=== PATIENT | male | born 1955 | race Caucasian/White ===

== ENCOUNTER 2020-09-27 08:02 | Outpatient (CLI) | payer OTHER, SELFPAY ==
--- NOTE | ~2020-09-27 | CT_ITS ---
EXAMINATION: CT lung screening DATE: 09/27/2020 08:29 INDICATION: History of tobacco dependence TECHNIQUE: Computed tomography (CT) of the chest was performed without intravenous contrast. The dose -length product was 136.88 mGy-cm. Automated exposure control and iterative reconstruction technique were employed. COMPARISON: None FINDINGS: There is emphysema. No endobronchial lesions. No significant pleural or pericardial effusio n. No thoracic lymphadenopathy. There is atherosclerosis of the aorta and coronary arteries. No suspi cious pulmonary nodules or masses. No focal airspace consolidation. No pneumothorax. Heart size is no rmal. There is a 2.2 cm liver cyst. IMPRESSION: 1. Lung-RADS category 1: Negative. Continue annual screening with noncontrast low-dose chest CT in 12 months. Reviewed, dictated and finalized at location B. LINE DISPATCHER IMPRESSION: 1. Lung-RADS category 1: Negative. Continue annual screening with noncontrast l ow-dose chest CT in 12 months.
--- NOTE | ~2020-09-27 | US_ITS ---
EXAMINATION: US aorta [facility] DATE: 09/27/2020 08:48 MOTORIZED SQUAD CAPTAIN INDICATION: Abdominal aortic aneurysm screening TECHNIQUE: Grayscale, color Doppler, and pulsed Doppler images of the aorta and common iliac arteries were obtained. COMPARISON: None. FINDINGS: The proximal aorta measures 2.9 cm greatest sagittal dimension. The mid aorta measures 2.2 cm greates t sagittal dimension. The distal aorta measures 3.2 cm greatest sagittal dimension. The right common internal iliac artery measures 1.4 cm. The left common iliac artery measures 1.2 cm. IMPRESSION: 1. Infrarenal abdominal aortic aneurysm measuring 3.2 cm greatest sagittal dimension. Reviewed, dictated and finalized at location B. RIZED SQUAD CAPTAIN IMPRESSION: 1. Infrarenal abdominal aortic aneurysm measuring 3.2 cm greatest sagittal dime nsion.
== END 2020-09-27 08:03 | disposition home or self-care (01) ==
LOC: CHSIMG 08:05
PROVIDERS: PCP Internal Medicine; Visit Provider Internal Medicine
DX: Z12.2 Encounter for screening for malignant neoplasm of respiratory organs (principal); Z87.891 Personal history of nicotine dependence; Z13.89 Encounter for screening for other disorder
CPT/HCPCS: 76706; G0297

== ENCOUNTER 2020-10-02 08:51 | Outpatient (CLI) | payer OTHER, SELFPAY ==
--- NOTE | 2020-10-02 09:00 | EST_ITS ---
Corrected Report: Changed Ordering Physician from Rick, Dave Hillman MD to Jazmin Cabrera MD 10/02/20 -BJO Patient Info Name: Suhas Fox Age: 65 years : 1955 Gender: Male Ht: 71 in Wt: 190 lbs BSA: 2.09 m2 HR: 79 bpm BP: 119 / 53 mmHg Heart Rhythm: Sinus Rhythm Technical Quality: Excellent Exam Date: 10/02/2020 9:06 AM Exam Location: [facility] Patient Status: Outpatient Admit Date: 10/02/2020 Staff Ordering Physician: Jazmin Cabrera MD Attending Provider: Jazmin Cabrera MD Exercise Technologist: Maggie Mariscal CRT Exercise Physician: Marla Banks CEP Exam Type: CA stress test treadmill Study Info Indications CAD - An exercise stress test was performed. History/Risk Factors Dyslipidemia: Yes History/Risk Factors Hypercholesterolemia. Summary 1. 1. Negative Charbel exercise stress test for ischemic ST changes by ECG criteria. 2. 2. Good functional capacity, achieving 9 METs of workload. 3. 3. Appropriate HR response to exercise. 4. 4. Appropriate HR recovery at 1 minute post exercise. 5. 5. No imaging with stress testing. Protocol: Charbel Stress ECG Details Stage: REST Duration (min): 2 min : 7 sec Speed (mph): 0.0 Grade (%): 0 HR (bpm): 78 SBP (mmHg): 119 DBP (mmHg): 53 METS: --- Stage: REST Duration (min): 2 min : 31 sec Speed (mph): 0.0 Grade (%): 0 HR (bpm): 77 SBP (mmHg): 119 DBP (mmHg): 53 METS: --- Stage: STAGE 1 Duration (min): 1 min : 0 sec Speed (mph): 1.7 Grade (%): 10 HR (bpm): 105 SBP (mmHg): 119 DBP (mmHg): 53 METS: --- Stage: STAGE 1 Duration (min): 2 min : 0 sec Speed (mph): 1.7 Grade (%): 10 HR (bpm): 111 SBP (mmHg): 119 DBP (mmHg): 53 METS: --- Stage: STAGE 1 Duration (min): 3 min : 0 sec Speed (mph): 1.7 Grade (%): 10 HR (bpm): 114 SBP (mmHg): 151 DBP (mmHg): 47 METS: --- Stage: STAGE 2 Duration (min): 1 min : 0 sec Speed (mph): 2.5 Grade (%): 12 HR (bpm): 130 SBP (mmHg): 151 DBP (mmHg): 47 METS: --- Stage: STAGE 2 Duration (min): 2 min : 0 sec Speed (mph): 2.5 Grade (%): 12 HR (bpm): 141 SBP (mmHg): 151 DBP (mmHg): 47 METS: --- Stage: STAGE 2 Duration (min): 3 min : 0 sec Speed (mph): 2.5 Grade (%): 12 HR (bpm): 145 SBP (mmHg): 151 DBP (mmHg): 47 METS: --- Stage: STAGE 3 Duration (min): 1 min : 0 sec Speed (mph): 3.4 Grade (%): 14 HR (bpm): 155 SBP (mmHg): 158 DBP (mmHg): 90 METS: --- Stage: STAGE 3 Duration (min): 1 min : 42 sec Speed (mph): 3.4 Grade (%): 14 HR (bpm): 163 SBP (mmHg): 158 DBP (mmHg): 90 METS: --- Stage: RECOVERY Duration (min): 0 min : 17 sec Speed (mph): 1.5 Grade (%): 0 HR (bpm): 161 SBP (mmHg): 158 DBP (mmHg): 90 METS: --- Stage: RECOVERY
== END 2020-10-02 08:52 | disposition home or self-care (01) ==
LOC: CHSCARD 08:52
PROVIDERS: PCP Internal Medicine; Visit Provider Internal Medicine
DX: I25.10 Atherosclerotic heart disease of native coronary artery without angina pectoris (principal)
CPT/HCPCS: 93017

== ENCOUNTER 2022-08-01 07:28 | Outpatient (CLI) | payer MEDICARE, OTHER, SELFPAY ==
--- NOTE | ~2022-08-01 | CT_ITS ---
EXAMINATION:CT lung screening DATE: 08/01/2022 07:49 INDICATION: Personal history of nicotine dependence. Smoker who quit 3 years ago with 44 pack year hi story. TECHNIQUE: Computed tomography (CT) of the chest was performed without intravenous contrast. Automate d exposure control and iterative reconstruction technique were employed. The dose-length product (DLP ) was 155.77 mGy-cm. COMPARISON: Chest CT 09/27/2020 FINDINGS: There is moderate emphysema. There is stable mild scarring at the lung apices. No pleural e ffusion. The heart size is normal. There are coronary artery calcifications. No pericardial effusion. There is mild bilateral gynecomastia. There is a 2.3 cm mass in right adrenal gland inhalation witho ut change, likely an adenoma. There is mild thoracic spondylosis. IMPRESSION: 1. Lung-RADS category 2: Benign appearance or behavior. Continue annual screening with noncontrast lo w-dose chest CT in 12 months. Reviewed, dictated and finalized at location A. IMPRESSION: 1. Lung-RADS category 2: Benign appearance or behavior. Continue annual screeni ng with noncontrast low-dose chest CT in 12 months.
--- NOTE | ~2022-08-01 | US_ITS ---
EXAMINATION: US aorta DATE: 08/01/2022 07:59 INDICATION: Abdominal aortic aneurysm TECHNIQUE: Grayscale, color Doppler, and pulsed Doppler images of the aorta and common iliac arteries were obtained. COMPARISON: None. FINDINGS: The proximal aorta measures 2.8 cm. The mid aorta measures 2.2 cm. Again seen is a likely from aneury sm of the infrarenal abdominal aorta which measures up to 3.9 cm in maximal diameter. The right commo n iliac artery measures 1.2 cm. The left common iliac artery measures 1.1 cm caliber. Normal triphasi c waveforms in the abdominal aorta and the left and right iliac arteries. The visualized proximal inf erior vena cava is normal. IMPRESSION: 1. Interval increase in diameter of a now 3.9 cm infrarenal abdominal aortic aneurysm. Reviewed, dictated and finalized at location A. IMPRESSION: 1. Interval increase in diameter of a now 3.9 cm infrarenal abdominal aortic an eurysm.
== END 2022-08-01 07:29 | disposition home or self-care (01) ==
PROVIDERS: PCP Internal Medicine; Visit Provider Internal Medicine
DX: Z12.2 Encounter for screening for malignant neoplasm of respiratory organs (principal); Z87.891 Personal history of nicotine dependence; I71.40 Abdominal aortic aneurysm, without rupture, unspecified
CPT/HCPCS: 71271; 76775

== ENCOUNTER 2023-02-03 07:48 | Outpatient (CLI) | payer MEDICARE, OTHER, SELFPAY ==
--- NOTE | ~2023-02-03 | US_ITS ---
EXAMINATION: US aorta DATE: 02/03/2023 08:52 CDT INDICATION: Abdominal aortic aneurysm TECHNIQUE: Grayscale, color Doppler, and pulsed Doppler images of the aorta and common iliac arteries were obtained. COMPARISON: Ultrasound dated 08/01/2022 FINDINGS: The proximal aorta measures 2 cm sagittal dimension. The mid aorta measures 2.8 cm sagittal dimension . The distal aorta measures 3.4 cm sagittal dimension. The right common internal iliac artery measure s 1.3 cm. The left common iliac artery measures 1.2 cm. IMPRESSION: 1. Juxtarenal abdominal abdominal aortic aneurysm measuring 3.4 cm. Reviewed, dictated and finalized at location B.
== END 2023-02-03 07:49 | disposition home or self-care (01) ==
LOC: CHSIMG 07:50
PROVIDERS: PCP Internal Medicine; Visit Provider Internal Medicine
DX: I71.40 Abdominal aortic aneurysm, without rupture, unspecified (principal)
CPT/HCPCS: 76775

== ENCOUNTER 2023-08-15 07:25 | Outpatient (CLI) | payer MEDICARE, OTHER, SELFPAY ==
--- NOTE | ~2023-08-15 | CT_ITS ---
CT Scan of the Chest without Contrast: Clinical Indication: Lung cancer screening, personal history of nicotine dependence Technique: Contiguous sections were acquired throughout the chest without intravenous contrast. Dose reduction technique was used on this scan by utilizing automated exposure control and iterative recon struction technique. The dose-length product (DLP) was 141.53 mGy-cm. COMPARISON: 08/01/2022, 09/27/2020 Findings: There is no evidence of any significant mediastinal, hilar or axillary lymphadenopathy. Coronary obey ry calcifications are present. There is no evidence of pleural or pericardial effusion. Mild emphysema at the upper lobes noted. No pulmonary nodules or infiltrates are noted. Images through the upper abdomen reveal stable right adrenal adenoma. Impression: Lung RADS 1: Negative. 12 month follow-up screening CT advised. Reviewed, dictated and finalized at [facility]. Impression: Lung RADS 1: Negative. 12 month follow-up screening CT advised.
--- NOTE | ~2023-08-15 | US_ITS ---
EXAMINATION: US aorta DATE: 08/15/2023 07:50 INDICATION: Follow-up abdominal aortic aneurysm TECHNIQUE: Grayscale, color Doppler, and pulsed Doppler images of the aorta and common iliac arteries were obtained. COMPARISON: 02/03/2023 FINDINGS: The proximal aorta measures 2.2 cm. The mid aorta measures 2.8 cm. The distal aorta measures 2.2 cm. The right common iliac artery measures 1.3 cm. The left common iliac artery measures 1.1 cm. IMPRESSION: 1. Increasing diameter of a fusiform infrarenal abdominal aortic aneurysm now measuring up to 4.4 cm. Reviewed, dictated and finalized at location A. IMPRESSION: 1. Increasing diameter of a fusiform infrarenal abdominal aortic aneurysm now m easuring up to 4.4 cm.
== END 2023-08-15 07:26 | disposition home or self-care (01) ==
LOC: CHSIMG 07:27
PROVIDERS: PCP Internal Medicine; Visit Provider Internal Medicine
DX: Z12.2 Encounter for screening for malignant neoplasm of respiratory organs (principal); I71.43 Infrarenal abdominal aortic aneurysm, without rupture; Z87.891 Personal history of nicotine dependence
CPT/HCPCS: 71271; 76775

== ENCOUNTER 2024-06-09 08:43 | Outpatient (CLI) | payer MEDICARE, OTHER, SELFPAY ==
--- NOTE | ~2024-06-09 | US_ITS ---
EXAMINATION: US aorta DATE: 06/09/2024 09:12 INDICATION: Abdominal aortic aneurysm. TECHNIQUE: Grayscale, color Doppler, and pulsed Doppler images of the aorta and common iliac arteries were obtained. COMPARISON: Ultrasound 08/15/2023 FINDINGS: The aorta demonstrates a 4.2 cm fusiform infrarenal aneurism. The right common iliac artery is normal in size. The left common iliac artery is normal in size. IMPRESSION: 1. Stable 4.2 cm fusiform infrarenal aortic aneurysm. Reviewed, dictated and finalized at location A.
== END 2024-06-09 08:44 | disposition home or self-care (01) ==
LOC: CHSIMG 08:46
PROVIDERS: PCP Internal Medicine; Visit Provider Internal Medicine
DX: I71.40 Abdominal aortic aneurysm, without rupture, unspecified (principal)
CPT/HCPCS: 76775

== ENCOUNTER 2024-06-15 09:54 | Outpatient (CLI) | payer MEDICARE, OTHER, SELFPAY ==
--- NOTE | ~2024-06-15 | XR_ITS ---
XR knee RT min 4V Ordering provider: Jazmin Cabrera MD History: . R KNEE PAIN,CHRONIC STANDING/OVERUSE,WORSENING . Comparison: None. FINDINGS: BONES: No acute fracture or dislocation. Possible subchondral defect in the lateral femoral condyle. JOINT SPACES: Narrowing of the medial compartment. SOFT TISSUES: Normal. IMPRESSION: No acute osseous abnormality right knee. Possible subchondral defect in the lateral femoral condyle. Mild osteoarthritic changes. Reviewed, dictated and finalized at location A.
== END 2024-06-15 09:55 | disposition home or self-care (01) ==
LOC: CHSIMG 09:57
PROVIDERS: PCP Internal Medicine; Visit Provider Internal Medicine
DX: M25.561 Pain in right knee (principal); M17.11 Unilateral primary osteoarthritis, right knee
CPT/HCPCS: 73564

== ENCOUNTER 2024-06-24 09:00 | Outpatient (CLI) | payer MEDICARE, OTHER, SELFPAY ==
--- NOTE | ~2024-06-24 | MR_ITS ---
MRI of the right knee Clinical history: Pain Technique: Coronal proton density and proton density-weighted images, sagittal proton-density and T2 fat-sat images, and axial proton-density fat-saturated images were acquired. Findings: Anterior and posterior cruciate ligaments are intact. Medial collateral ligament and the la teral collateral ligament complex are intact. Popliteus tendon is intact. There is a probable subtle oblique tear of the posterior horn the medial meniscus. There is horizonta l tear of the body segment of the lateral meniscus, probably extending into the anterior horn. There is associated complex/multiseptated lateral para-meniscal cyst measuring 1.5 x 0.8 x 4.0 cm in extent (axial image 20, coronal images 12-16 for example). There is mild tricompartmental chondral thinning. Bone marrow signals are unremarkable. Extensor mechanism is intact. No significant joint effusion or Park's cyst. Impression: Horizontal tear of the body segment of the lateral meniscus extending to the anterior horn, with 1.5 x 0.8 x 4.0 cm multiseptated para-meniscal cyst along the lateral joint line. Subtle oblique tear of the posterior horn of the medial meniscus. Reviewed, dictated and finalized at [facility]. Impression: Horizontal tear of the body segment of the lateral meniscus extending to the an terior horn, with 1.5 x 0.8 x 4.0 cm multiseptated para-meniscal cyst along the lateral joint line. Subtle oblique tear of the posterior horn of the medial meniscus.
== END 2024-06-24 09:01 | disposition home or self-care (01) ==
LOC: CHSIMG 09:04
PROVIDERS: PCP Internal Medicine; Visit Provider Internal Medicine
DX: M25.561 Pain in right knee (principal); S83.281A Other tear of lateral meniscus, current injury, right knee, initial encounter; S83.241A Other tear of medial meniscus, current injury, right knee, initial encounter
CPT/HCPCS: 73721

== ENCOUNTER 2024-08-19 07:59 | Outpatient (RCR) | payer MEDICARE, OTHER, SELFPAY ==
--- NOTE | 2024-08-19 08:43 | PTOPEVAL1 ---
Assessment and note entered by Josh Paiz Evaluation Information Assessment Status Evaluation ICD-10 Condition Codes (PT) M25.561 Onset 08/16/24 Subjective Information Pt. reports that he has had right knee pain for about 5 years. He states that doctor informed him that he has a lot of arthritis in the right knee. He describes most pain on the front of the right knee. He states that squatting, kneeling and stairs will increase his pain. He states that despite his pain, he is able to complete most activity of daily living. 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 He states that he would like to avoid knee replacement and goal for therapy is to decrease pain with standing activities. Reported Pain Level Pain Score 0: Self Report Assessment PT Clinical Summary Pt. is a 69 year old male who enters the clinic with right knee pain. He presents with impaired proximal l.e. strength, impaired stair navigation, inability to kneel/squat, impaired flexibility and pain. Continue treatment focusing on these areas to allow for pt. goal of improved comfort with standing activities. Plan of Care Interventions Electrical Stimulation,Gait Training,Hot Pack/Cold Pack,Manual Therapy,Neuro Re-education,Patient/ Caregiver Educati,Therapeutic Activities, Therapeutic Exercise PT Services Indicated Yes Treatment Frequency and 2x/week x 8 visits Duration These treatments will address the objective and functional deficits as defined above. The patient will be advanced safely and appropriately in order for the patient to progress towards his/her prior level of function. Additional exercises will be introduced and as well as a comprehensive home exercise program upon discharge, if needed, ?to ensure carryover of functional gains achieved in the clinic. This treatment plan has been reviewed and agreement upon by the patient.
--- NOTE | 2024-08-19 08:43 | OPREHPOC ---
Outpatient Therapy Plan of Care This is a Multidisciplinary Plan of Care that may contain components documented by all disciplines (PT, OT, and ST.) PT Problem 1 PT Problem #1 Knowledge Deficit PT Goal 1 Goal / Goal Update Pt. will be independent with a HEP focusing on ROM and strength Target Visit 2 PT Problem 2 PT Problem #2 Impaired Flexibility PT Goal 1 Goal / Goal Update pt. will present at less than 30 degrees from full knee extension on left and right Target Visit 8 PT Problem 3 PT Problem #3 Impaired Strength PT Goal 1 Goal / Goal Update Pt. will present with 4+/5 bilateral hip abduction and extension strength. Target Visit 8 PT Problem 4 PT Problem #4 Impaired Functional Mobil PT Goal 1 Goal / Goal Update Pt. will increase LEFS score to less than 50% limitation Pt. will navigate stairs using a reciprocal pattern without deviation noted. Pt. will be able to knee for short duration with 1 /10 pain at worst to perform household duties. Target Visit 8
--- NOTE | 2024-09-14 08:52 | OPREHPOC ---
Outpatient Therapy Plan of Care This is a Multidisciplinary Plan of Care that may contain components documented by all disciplines (PT, OT, and ST.) PT Problem 1 PT Problem #1 Knowledge Deficit PT Goal 1 Goal / Goal Update Pt. will be independent with a HEP focusing on ROM and strength Target Visit 2 Progress Met PT Problem 2 PT Problem #2 Impaired Flexibility PT Goal 1 Goal / Goal Update pt. will present at less than 30 degrees from full knee extension on left and right Target Visit 8 Progress Not Met PT Problem 3 PT Problem #3 Impaired Strength PT Goal 1 Goal / Goal Update Pt. will present with 4+/5 bilateral hip abduction and extension strength. Target Visit 8 Progress Met PT Problem 4 PT Problem #4 Impaired Functional Mobil PT Goal 1 Goal / Goal Update Pt. will increase LEFS score to less than 50% limitation. met Pt. will navigate stairs using a reciprocal pattern without deviation noted. met Pt. will be able to knee for short duration with 1 /10 pain at worst to perform household duties. met Target Visit 8 Progress Met
--- NOTE | 2024-09-14 08:53 | PTOPDC ---
Assessment and note entered by JT File, PT Evaluation Information Assessment Status Discharge ICD-10 Condition Codes (PT) M25.561 Onset 08/16/24 Subjective Information patient reports he is much better since beginning skilled PT. he reports he really only has pain along the outside of the R knee with increased stairs and ladder climbing. 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 he reports he does not have to climb ladders often, but reports he has multiple steps at his home that he has to walk up and down frequently. Reported Pain Level Pain Score 1: Self Report Assessment PT Clinical Summary mr. banda presents to skilled PT for his 8th skilled PT visit. he presents today with improve bilateral hip strength, normal gait mechanics, and reciprocal ambulation up and down steps. the only goal he has not met is for hamstrings length. he will DC skilled PT today, and continue with HEP independent at home. Plan of Care PT Services Indicated Yes
== END 2024-09-14 09:13 | disposition home or self-care (01) ==
LOC: CHSPT 07:59
PROVIDERS: PCP Internal Medicine; Visit Provider Orthopaedic Surgery
DX: M25.561 Pain in right knee (principal)
CPT/HCPCS: 97110; 97150; 97161; 97530

== ENCOUNTER 2025-08-10 07:19 | Outpatient (CLI) | payer MEDICARE, OTHER, SELFPAY ==
--- NOTE | ~2025-08-10 | US_ITS ---
EXAMINATION: US aorta DATE: 08/10/2025 07:56 INDICATION: Abdominal aortic aneurysm TECHNIQUE: Grayscale, color Doppler, and pulsed Doppler images of the aorta and common iliac arteries were obtained. COMPARISON: None. FINDINGS: The proximal aorta measures 2.5 cm. The fusiform aneurysm of the mid to distal aorta measuring up to 4.1 cm in maximal diameter tapering to 2.3 cm at the aortic bifurcation. The right common iliac artery measures 1.3 cm. The left common iliac artery measures 1.5 cm. IMPRESSION: 1. No significant interval change in a 4.1 cm infrarenal aortic aneurysm. Reviewed, dictated and finalized at location A.
== END 2025-08-10 07:20 | disposition home or self-care (01) ==
LOC: CHSIMG 07:21
PROVIDERS: PCP Internal Medicine; Visit Provider Internal Medicine
DX: I71.43 Infrarenal abdominal aortic aneurysm, without rupture (principal)
CPT/HCPCS: 76775